=== PATIENT | male | born 1965 | race Caucasian/White ===

== ENCOUNTER 2022-08-28 14:41 | Inpatient (IN) | payer BC, SELFPAY ==
[2022-08-28 14:50] VITALS: BP 110/74; PULSE 82; RESP 15; TEMP 37.2; O2SAT 96
--- NOTE | 2022-08-28 15:15 | DI.CT_ITS ---
Exam(s) CT ABDOMEN PELVIS W EXAM: CT ABDOMEN PELVIS W CLINICAL HISTORY: epigatric pain. TECHNIQUE: Imaging Protocol: Axial computed tomography images with coronal and sagittal reformatted images were created and reviewed CONTRAST MATERIAL: Intravenous: Omnipaque 350 Contrast volume:100 ml Oral: yes / no COMPARISON: No exams were available for comparison FINDINGS: ABDOMEN: Lung Bases: Small nodules consistent with granulomas. No follow-up recommended. Liver: Mild fatty infiltration. No measurable mass. Gallbladder and biliary tract: Gallbladder is somewhat distended with hyperdense material. This coul d be secondary to previously administered contrast or high-density sludge.. There is an air bubble w ithin the lumen. There is mild stranding around the gallbladder neck. There is mild dilatation of t he common bile duct. There is mild intrahepatic biliary dilatation. No common duct stone is visible . Pancreas: Normal density, no abnormal calcifications or inflammatory process. Spleen: Normal. Kidneys: Normal size, contour and axis. No radiodense stones or obstructive uropathy. No suspicious m asses seen. Adrenal glands: No masses seen. Abdominal Aorta: Abdominal portion non-dilated. Soft tissues: Unremarkable. PELVIS: Bladder: Distended. No gross wall thickening. No calculi.No focal mass. Bowel: Diverticulosis. No evidence of diverticulitis. No obstruction. No bowel wall thickening. A ppendix normal. Peritoneal cavity: No ascites, collection or mesenteric inflammatory response. Bones: Unremarkable for age. Reproductive organs: Enlarged prostate. Lymph nodes: Unremarkable. Impression: High-density material in the gallbladder could represent sludge versus previously administered contra st. Some surrounding inflammation and as well as air bubble is suspicious for acute cholecystitis. Ultrasound follow-up recommended. Mild biliary dilatation. RADIATION DOSE DELIVERED: 1,161.38mGy.cm Total DLP DATA REPOSITORY: All CT scans at this facility are submitted to the National Radiology Data Registry (NRDR) Dose Index Registry (DIR) with the [employer] (A[employer]). RADIATION OPTIMIZATION: All CT scans at this facility use at least one of these dose optimization te chniques: automated exposure control; mA and/or kV adjustment per patient size (includes targeted exa ms where dose is matched to clinical indication); or iterative reconstruction.
--- NOTE | 2022-08-28 15:16 | ED.GENADUL_ITS ---
Discharge Plan Discharge Details Chief Complaint: Abd Prob ED Provider: Francesco Hussein Home Meds and New Rx's Prescriptions: No Action sertraline 100 mg Tablet 100 mg PO DAILY levothyroxine 150 mcg Tablet 150 mcg PO DAILY rosuvastatin 10 mg Tablet 10 mg PO DAILY HPI General Date/Time Provider Initiated Documentation: 08/28/22 15:16 . HPI Narrative: 57-year-old gentleman presented to the emergency room for evaluation of abdominal pain. He was at [facility] in [place] last week where he got diagnosed with gallstones and possible obstruction requiring ERCP. He was referred to [facility] in [place] where he had the ERCP done yesterday. He was told to expect some discomfort for the next 2 days. He developed some epigastric pain this morning. He reached out to the family service worker who recommended that he stop in the emergency department for some imaging. They are in transit towards [place] for their vacation there. Here at [facility]. He states that he woke up this morning feeling comfortable. Had an adequate breakfast and then took the road. While on the road is when he developed discomfort/pain. Associate with some mild nausea but no vomiting. No fevers no chills. He did take 15 mg of morphine around noon. Currently in the emergency department he is almost pain-free and they are comfortable. Related Data Home Medications Medication Instructions Recorded Confirmed levothyroxine 150 mcg tablet 150 mcg PO DAILY 08/28/22 08/28/22 rosuvastatin 10 mg tablet 10 mg PO DAILY 08/28/22 08/28/22 sertraline 100 mg tablet 100 mg PO DAILY 08/28/22 08/28/22 Allergies Allergy/AdvReac Type Severity Reaction Status Date / Time No Known Allergies Allergy Unverified 08/28/22 14:54 General Stated Complaint: Abd Prob MIKE: 3 Review of Systems Narrative: 10 point review of system is negative unless otherwise specified in the HPI PFSH All Active Problems (Updated 08/28/22 @ 19:21 by Garth Paul MD) Post-ERCP acute pancreatitis (Acute) Social History Smoking/Tobacco Use Status: Never Smoking risk assessment performed?: Yes Alcohol Intake: never Drug use: Never Substance use type: does not use Exam Narrative Exam Narrative: General: A,A Ox3, Calm, no apparent distress, well developed, pleasant and cooperative Head Size/Shape: normocephalic, atraumatic Eyes Pupils: PERRLA Extraocular Mobility: intact and symmetrical Conjunctiva: non-injected, anicteric, no discharge Ears, Nose, Throat Nares: patent bilaterally Oral Cavity: moist Neck: no masses, no crepitus Respiratory Effort: no dyspnea Normal cap refill Abdomen Inspection and Palpation: soft, non-tender, non-distended, no hepatosplenomegaly Musculoskeletal System Joints, Bones, and Muscles: no deformities Extremities: warm and well-perfused, no cyanosis, capillary refill <2 seconds Skin Skin Inspection: no rash, no lesions, no bruising Neurological Motor: normal tone, normal strength, moving all extremities equally Psychiatric: good insight, good judgement, normal mood and affect Course The patient CT scan revealed mild gallbladder distention with some perivesicular fatty inflammation. Findings were concerning for acute cholecystitis. Given the patient's elevated white count and elevated LFTs which are new from last week, this is concerning for acute cholecystitis. The case was discussed with Dr. Paul. Who is also aware that the patient also has mild pancreatitis. We discussed the plan to admit the patient for at least 24 to 48 hours for IV antibiotics to make sure that symptoms are defervescent before even considering surgical intervention. This was discussed with the patient and his . . The patient talked with them. 7 PM, the patient was seen by Dr. Paul in the emergency department. Discussed treatment modalities with the patient. Patient will be admitted to the hospital. Vital Signs Vital signs: Vital Signs Temperature 37.2 C 08/28/22 14:50 Pulse 82 08/28/22 14:50 Respiratory Rate 15 08/28/22 14:50 Blood Pressure 110/74 08/28/22 14:50 Pulse Oximetry 96 08/28/22 14:50 Temperature 37.2 C 08/28/22 14:50 Temperature Source Temporal Artery Scan 08/28/22 14:50 Pulse 82 08/28/22 14:50 Respiratory Rate 15 08/28/22 14:50 Respiratory Effort Normal 08/28/22 14:53 Blood Pressure 110/74 08/28/22 14:50 Blood Pressure Position Sitting 08/28/22 14:50 Pulse Oximetry 96 08/28/22 14:50 Oxygen Delivery Method Room Air 08/28/22 14:50 Oxygen Flow Rate 0 08/28/22 14:50 Pain Level 3 08/28/22 14:50
[2022-08-28 15:33] LABS: Abs Immature Grans 0.05 10^3/uL (0.0-0.06); Absolute Basophil Count 0.06 10^3/uL (0.0-0.2); Absolute Eosinophil Count 0.07 10^3/uL (0.0-0.7); Absolute Lymphocyte Count 1.07 10^3/uL (1.2-3.4); Absolute Monocyte Count 0.79 10^3/uL (0.1-0.8); Absolute Neutrophil Count 10.08 10^3/uL (1.2-6.7); Basophils % 0.5; Eosinophils % 0.6; HCT 46.1 % (40.0-50.0); HGB 15.3 g/dL (13.5-17.5); Immature Grans % 0.4; Lymphocytes % 8.8; MCH 27.4 pg (27.0-33.0); MCHC 33.2 % (32.0-36.0); MCV 83 fL (80-95); MPV 9.4 fL (8.0-11.0); Monocytes % 6.5; Neutrophils % 83.2; Platelet Count 268 10^3/uL (130-400); RBC 5.59 10^6/uL (4.36-5.78); RDW 14.1 % (11.8-14.1); WBC 12.12 10^3/uL (4.4-10.8)
[2022-08-28 15:49] LABS: ALT 175 U/L (16-63); AST 116 U/L (15-37); Alkaline Phosphatase 166 U/L (46-116); Anion Gap 6.2 mmol/L (3-11); BUN 12 mg/dL (7-18); Bilirubin, Total 1.3 mg/dL (0.2-1.0); CO2 28.8 mmol/L (21.0-32.0); CREATININE 1.2 mg/dL (0.70-1.30); Calcium 9.1 mg/dL (8.5-10.1); Chloride 104 mmol/L (98-107); Estimated GFR 71.42 (mL/min/1.73m2); Glucose 146 mg/dL (74-106); Potassium 4.2 mmol/L (3.5-5.1); Sodium 139 mmol/L (136-145); Total Protein 7.8 g/dL (6.4-8.2)
[2022-08-28 15:53] LABS: Lipase > 375 U/L (16-77)
[2022-08-28] MEDS: Omnipaque 350 MG/ML 100 ML BTL IJ (16:21)
[2022-08-28] MEDS: Normal Saline - Diluent 50 ML VIAL IJ (16:21)
[2022-08-28] MEDS: Normal Saline Flush 10 ML SYR IVP ×2 (16:27→21:24)
--- NOTE | 2022-08-28 16:55 | DI.VRAD_ITS ---
PROCEDURE INFORMATION: Exam: CT Abdomen And Pelvis With Contrast Exam date and time: 08/28/2022 4:17 PM Age: 57 years old Clinical indication: Pain; Other: Epigastric TECHNIQUE: Imaging protocol: Computed tomography of the abdomen and pelvis with contrast. Contrast material: OMNIPAQUE 350; Contrast volume: 100 ml; Contrast route: INTRAVENOUS (IV); COMPARISON: No relevant prior studies available. FINDINGS: Lungs: No acute lung base infiltrates. Two small nodules adjacent to each other in the posterior left lower lobe measuring 6 mm and 3 mm. Series 4, image 3. These are noncalcified. There is also a small nodule in the lingular segment of the left upper lobe measuring 5 x 3 mm. Noncalcified. These nodules are rounded. A 4th nodule in the left costophrenic sulcus is 4 x 3 mm on series 4, image 16. These are likely small granulomas. Based on MIPS criteria, no further imaging follow-up is recommended at this time. Heart: Normal heart size. No pericardial effusion. No coronary artery atherosclerotic calcium. Liver: Liver with moderate fatty infiltration. Gallbladder and bile ducts: Distended gallbladder. Hyperdense gallbladder contents may represent sludge or tiny stones. There is a minor focus of air in the gallbladder fundus. Some inflammation is suggested around the gallbladder neck within the Susan vesicular fat. These findings are concerning for cholecystitis. Recommend ultrasound follow-up. Common bile duct upper limits of normal at 6 mm. Minor intrahepatic biliary dilatation. Pancreas: The pancreas is normal in contour and attenuation. Spleen: The spleen is normal in size, contour and attenuation. Adrenal glands: The adrenal glands are normal in size and contour bilaterally. Kidneys and ureters: No acute renal changes. No calculi. No inflammation. Subcentimeter bilateral renal cysts. No further imaging follow-up is recommended based on MIPS criteria. Stomach and bowel: Gastric morphology is unremarkable. No edema. No gastric outlet obstruction. Small sliding hiatal hernia. No acute change. Small bowel loops are normal in course and caliber. There is no mucosal edema or bowel wall thickening. No obstructive features. Large bowel is unremarkable. No acute features. Diverticulosis without acute diverticulitis. Appendix: A non inflamed appendix is identified. Series 4, images 51-54. Intraperitoneal space: Unremarkable. No free air. No significant fluid collection. Vasculature: Unremarkable. No abdominal aortic aneurysm. Lymph nodes: Unremarkable. No enlarged lymph nodes. Urinary bladder: Urinary bladder is unremarkable in appearance. No wall thickening. No intravesicular calculi. No intravesicular gas.. Reproductive: Mild prostate enlargement. Recommend clinical correlation. Bones/joints: No acute skeletal changes. Soft tissues: Soft tissues of the bowel wall are unremarkable. IMPRESSION: 1. Mild gallbladder distention, punctate intravesicular gas, and minor perivesicular fatty inflammation. Concern for acute cholecystitis. Recommend ultrasound correlation. Common bile duct is upper limits of normal at 6 mm. Minor intrahepatic biliary dilatation is noted. Please correlate with serology. 2. Fatty liver change. 3. Nonspecific prostate enlargement. 4. No acute bowel pathology. 5. No free fluid or free air. Dictated and Authenticated by: Abdullahi Rosen MD. Ordering:ROSELINE Maya MD
[2022-08-28] MEDS: AMPICILLIN/SULBACTAM 3 GM in Normal Saline 100 ML IVPB (17:59)
[2022-08-28 18:26] VITALS: BP 107/72; PULSE 67; RESP 18; O2SAT 95
--- NOTE | 2022-08-28 19:16 | HPE_ITS ---
Date of service: 08/28/22 Time of Service: 19:17 Assessment and Plan Assessment and plan (1) Post-ERCP acute pancreatitis: Status: Acute Assessment and plan: Although the CAT scan does show a little bit of inflammation around the cystic neck, the remainder of the gallbladder body and dome appear normal, with no signs of inflammation in the surrounding fat pad. With the elevated lipase, and a history of an ERCP yesterday, this seems most consistent with post ERCP pancreatitis. We talked about the natural history of pancreatitis as well as cholecystitis. At this point, I think supportive therapy, with some intravenous fluids and resuscitation is the safest course of action. We will start some antibiotics as well in the case that the gallbladder itself is inflamed. I will repeat a CBC and a lipase tomorrow. If he looks and feels better, and his biochemistry is improved, then we can work towards discharge, with an elective cholecystectomy closer to home. If he prefers to undergo janna cystectomy here, that is also an option as well. History of Present Illness History of Present Illness Chief Complaint: Abdominal pain Narrative: Heriberto is 57 years old, and he presents to the emergency department with a chief complaint of stabbing mid abdominal pain. He is got a history of choledocholithiasis, which was diagnosed by CAT scan approximately half ago. Lipase and LFTs were normal at that time. He was referred to grinding supervisor for elective ERCP, which she underwent yesterday. He woke from the procedure feeling okay, but did note some midepigastric abdominal discomfort. He was able to tolerate some breakfast, but the pain continued, and became a bit more intense. Incidentally, he lives in [facility], and he is driving through [facility] on his way to [place]. Review of Systems Constitutional Constitutional: Denies body ache(s), Denies fatigue, Denies fever(s), Denies malaise, Denies poor appetite and Denies weakness Eyes Eyes: Reports system reviewed and no additional complaints, except as documented ENT Ears, Nose, Mouth, and Throat: Reports nasal congestion Cardiovascular Cardiovascular: Denies chest pain and Denies dyspnea Respiratory Respiratory: Denies chest congestion, Denies cough and Denies dyspnea Gastrointestinal Gastrointestinal: Reports abdominal pain, Denies change in bowel habits, Denies nausea and Denies vomiting Musculoskeletal Musculoskeletal: Denies back pain and Denies myalgias Neurologic Neurologic: Reports system reviewed and no additional complaints, except as documented and Denies weakness Psychiatric Psychiatric: Reports system reviewed and no additional complaints, except as documented Endocrine Endocrine: Denies fatigue Hematologic/Lymphatic Hematologic/Lymphatic: Denies easy bleeding and Denies easy bruising PFSH All Active Problems (Updated 08/28/22 @ 19:21 by Garth Paul MD) Post-ERCP acute pancreatitis (Acute) Social History Smoking/Tobacco Use Status: Never Smoking risk assessment performed?: Yes Alcohol Intake: never Drug use: Never Substance use type: does not use Meds Allergies and Home Medications Allergies Allergy/AdvReac Type Severity Reaction Status Date / Time No Known Allergies Allergy Unverified 08/28/22 14:54 Home Medications Medication Instructions Recorded Confirmed Type levothyroxine 150 mcg tablet 150 mcg PO DAILY 08/28/22 08/28/22 History rosuvastatin 10 mg tablet 10 mg PO DAILY 08/28/22 08/28/22 History sertraline 100 mg tablet 100 mg PO DAILY 08/28/22 08/28/22 History Exam Const General: cooperative, healthy appearing, comfortable and no acute distress Resp Effort & Inspection: normal respiratory effort, able to speak in complete sentences and no cough Auscultation: clear to auscultation bilaterally Cardio Rate: regular rate Rhythm: regular rhythm Heart Sounds: S1 normal and S2 normal GI Inspection: normal to inspection and non-distended Palpation: soft, no guarding and nontender Results Imaging Abdomen CT scan report/results: report reviewed and image reviewed CT scan - pelvis: report reviewed and image reviewed Labs 08/28/22 15:18 08/28/22 15:18 Labs: Laboratory Results - last 24 hr 08/28/22 08/28/22 15:18 15:18 WBC 12.12 H RBC 5.59 Hgb 15.3 Hct 46.1 MCV 83 MCH 27.4 MCHC 33.2 RDW 14.1 Plt Count 268 MPV 9.4 Immature Gran % 0.4 Neutrophils % 83.2 Lymphocytes % 8.8 Monocytes % 6.5 Eosinophils % 0.6 Basophils % 0.5 Nucleated RBC % 0.0 Absolute Neutrophils 10.08 H Absolute Lymphocytes 1.07 L Absolute Monocytes 0.79 Absolute Eosinophils 0.07 Absolute Basophils 0.06 Sodium 139 Potassium 4.2 Chloride 104 Carbon Dioxide 28.8 Anion Gap 6.2 BUN 12 Creatinine 1.2 Est GFR (CKD-EPI 2020) 71.42 Glucose 146 H Calcium 9.1 Total Bilirubin 1.3 H AST 116 H ALT 175 H Alkaline Phosphatase 166 H Total Protein 7.8 Albumin 4.0 Lipase > 375 H Last Vital Signs Temp 99.0 F 08/28/22 14:50 Pulse 67 08/28/22 18:26 Resp 18 08/28/22 18:26 BP 107/72 08/28/22 18:26 Pulse Ox 95 08/28/22 18:26 Time Spent Time spent with Patient: >75 minutes Time was spent: preparing to see the patient(eg.review tests), ordering medicati ons,tests, procedures, referring, communicating with other health resident care assistant, indepentently interpreting results and counseling the patient
[2022-08-28 20:09] VITALS: BP 116/69; PULSE 74; TEMP 36.4; O2SAT 96
[2022-08-28 20:45] VITALS: BP 131/80; PULSE 71; RESP 18; TEMP 37.5; O2SAT 94
[2022-08-28 20:46] VITALS: BP 131/80; PULSE 71; RESP 18; TEMP 37.5; O2SAT 94
[2022-08-28] MEDS: Lactated Ringers 1,000 ML 80 ML IV (21:24)
[2022-08-29] MEDS: AMPICILLIN/SULBACTAM 3 GM in Normal Saline 100 ML IVPB ×2 (01:17→06:22)
[2022-08-29 06:05] VITALS: BP 105/67; PULSE 65; RESP 18; TEMP 36.9; O2SAT 93
[2022-08-29 07:02] LABS: Abs Immature Grans 0.05 10^3/uL (0.0-0.06); Absolute Basophil Count 0.07 10^3/uL (0.0-0.2); Absolute Eosinophil Count 0.25 10^3/uL (0.0-0.7); Absolute Lymphocyte Count 1.89 10^3/uL (1.2-3.4); Absolute Monocyte Count 1.16 10^3/uL (0.1-0.8); Absolute Neutrophil Count 8.06 10^3/uL (1.2-6.7); Basophils % 0.6; Eosinophils % 2.2; HCT 44.3 % (40.0-50.0); HGB 14.7 g/dL (13.5-17.5); Immature Grans % 0.4; Lymphocytes % 16.5; MCH 27.2 pg (27.0-33.0); MCHC 33.2 % (32.0-36.0); MCV 82 fL (80-95); MPV 9.9 fL (8.0-11.0); Monocytes % 10.1; Neutrophils % 70.2; Platelet Count 255 10^3/uL (130-400); RBC 5.41 10^6/uL (4.36-5.78); RDW 14.1 % (11.8-14.1); RDW-SD 41.7 fL; WBC 11.48 10^3/uL (4.4-10.8)
[2022-08-29 07:31] LABS: ALT 130 U/L (16-63); AST 55 U/L (15-37); Albumin 3.6 g/dL (3.4-5.0); Alkaline Phosphatase 145 U/L (46-116); Anion Gap 8.1 mmol/L (3-11); BUN 10 mg/dL (7-18); Bilirubin, Total 0.9 mg/dL (0.2-1.0); CO2 26.9 mmol/L (21.0-32.0); Calcium 9.1 mg/dL (8.5-10.1); Chloride 106 mmol/L (98-107); Estimated GFR 88.88 (mL/min/1.73m2); Glucose 99 mg/dL (74-106); Lipase 95 U/L (16-77); Sodium 141 mmol/L (136-145)
--- NOTE | 2022-08-29 08:02 | DSE_ITS ---
Date of service: 08/29/22 Time of Service: 08:02 DS: Diagnosis Discharge Diagnosis (1) Post-ERCP acute pancreatitis: Status: Acute Asessment and Plan: Follow up with home physician and planned cholecystectomy Discharge Plan Disposition Patient Disposition: Home Condition: Improving Discharge Details Reason For Visit: Gallstone Pancreatitis Admit Date/Time: 08/28/22 19:13 Admit Provider: Garth Paul Attending Provider: Garth Paul [facility] Course: Heriberto 57 years old, he had an episode of choledocholithiasis requiring ERCP. About 24 hours after the procedure, he started to develop gnawing and stabbing mid abdominal pain. He came to the emergency department while traveling across [place]. He underwent a CAT scan of the abdomen and pelvis that demonstrated some inflammation around the infundibulum of the gallbladder, near the cystic neck. This raises the possibility of acute cholecystitis. However, serum lipase was also significantly elevated at greater than 375. This seem more consistent with gallstone pancreatitis. He was admitted to the hospital, his pain was treated, he was started on some intravenous fluids and a simple diet. His pain significantly improved over the next several hours. By the following morning, his lipase had normalized, and his pain was resolved. The plan to discharge home with a short course of antibiotics in the case that this might be cholecystitis, but overall seems most consistent with ERCP pancreatitis. We did talk about the importance of a follow-up cholecystectomy to reduce the chances of further complications of gallstones. Home Meds and New Rx's Prescriptions: New amoxicillin-pot clavulanate [Augmentin] 500-125 mg tablet 1 tab PO BID Qty: 12 0RF Rx Instructions: Take one tablet by mouth in the morning and one tablet by mouth in the evening. Complete 6 days total hydromorphone [Dilaudid] 2 mg tablet 2 mg PO Q6H MDD 4 tabs PRN (Reason: pain) Qty: 8 0RF Continued sertraline 100 mg Tablet 100 mg PO DAILY levothyroxine 150 mcg Tablet 150 mcg PO DAILY rosuvastatin 10 mg Tablet 10 mg PO DAILY Discharge Instructions Instructions: Pancreatitis (DC), ERCP (Endoscopic Retrograde Cholangiopancreatography) (DC) Additional Instructions: Consume a simple diet, low in fats for the next 48 hours. Consume things like fruits and vegetables, broths and simple carbohydrate breads. Avoid dairy, oils, and greasy foods. Over the counter ant-acids might also provide some simple relief for the next few days. Do not use the morphine that you were previously prescribed. Use tylenol and ibuprofen for pain or the Dilaudid prescribed today. I recommend that you plan to have your gallbladder removed as soon as possible. Stand Alone Forms: Nursing Discharge Form Activity:: Activity as Tolerated Equipment/Supplies:: No Equipment Needed Diet:: Low fat Discharge Orders Discharge Orders: Discharge Order (Routine); Ordered 08/29/22 Ordered By: Garth Paul DS: Summary Time Spent with Patient providing and/or coordinating discharge services: Greater than 30 minutes Status at Discharge Functional status at discharge: independent ambulation Overall status at discharge: patient is progressing back to baseline Mental Status: mental status grossly normal Speech and Movement: speech and movement normal Mood: congruent mood Affect: normal affect Exam GI Inspection: normal to inspection Palpation: soft and nontender Psych Mental Status: mental status grossly normal Speech and Movement: speech and movement normal Mood: congruent mood Affect: normal affect DS: Data Vitals/I&O Vitals and I&O: Vital Signs Temperature 98.4 F 08/29/22 06:05 Temperature Source Tympanic 08/29/22 06:05 Pulse 65 08/29/22 06:05 Pulse Rhythm Regular 08/28/22 20:46 Respiratory Rate 18 08/29/22 06:05 Respiratory Effort Normal, Non-Labored 08/28/22 20:46 Respiratory Depth Normal 08/28/22 20:46 Respiratory Pattern Normal 08/28/22 20:46 Blood Pressure 105/67 08/29/22 06:05 Blood Pressure Position Sitting 08/28/22 14:50 Pulse Oximetry 93 08/29/22 06:05 Oxygen Delivery Method Room Air 08/29/22 06:05 Oxygen Flow Rate 0 08/29/22 06:05 Pain Level 3 08/28/22 20:46 Intake & Output 08/28/22 08/28/22 08/29/22 11:59 23:59 11:59 Intake Total 100 / 100 750 / 750 Output Total 1000 / 1000 Balance 100 / 100 -250 / -250 Weight 204 lb 6.4 oz Intake: IV 100 / 100 100 / 100 Oral 650 / 650 Output: Urine 1000 / 1000 Other: Urine Color Yellow Urine Appearance Clear Cloudy Urine Odor Normal Voiding Methods Toilet Data Completed and Pending Labs on day of discharge: Labs from last 24 hours 08/29/22 08/29/22 08/28/22 06:00 06:00 15:18 WBC 11.48 H 12.12 H RBC 5.41 5.59 Hgb 14.7 15.3 Hct 44.3 46.1 MCV 82 83 MCH 27.2 27.4 MCHC 33.2 33.2 RDW 14.1 14.1 Plt Count 255 268 MPV 9.9 9.4 Immature Gran % 0.4 0.4 Neutrophils % 70.2 83.2 Lymphocytes % 16.5 8.8 Monocytes % 10.1 6.5 Eosinophils % 2.2 0.6 Basophils % 0.6 0.5 Nucleated RBC % 0.0 0.0 Absolute Neutrophils 8.06 H 10.08 H Absolute Lymphocytes 1.89 1.07 L Absolute Monocytes 1.16 H 0.79 Absolute Eosinophils 0.25 0.07 Absolute Basophils 0.07 0.06 Sodium 141 Potassium 4.0 Chloride 106 Carbon Dioxide 26.9 Anion Gap 8.1 BUN 10 Creatinine 1.0 Est GFR (CKD-EPI 2020) 88.88 Glucose 99 Calcium 9.1 Total Bilirubin 0.9 AST 55 H ALT 130 H Alkaline Phosphatase 145 H Total Protein 7.0 Albumin 3.6 Lipase 95 H 08/28/22 15:18 WBC RBC Hgb Hct MCV MCH MCHC RDW Plt Count MPV Immature Gran % Neutrophils % Lymphocytes % Monocytes % Eosinophils % Basophils % Nucleated RBC % Absolute Neutrophils Absolute Lymphocytes Absolute Monocytes Absolute Eosinophils Absolute Basophils Sodium 139 Potassium 4.2 Chloride 104 Carbon Dioxide 28.8 Anion Gap 6.2 BUN 12 Creatinine 1.2 Est GFR (CKD-EPI 2020) 71.42 Glucose 146 H Calcium 9.1 Total Bilirubin 1.3 H AST 116 H ALT 175 H Alkaline Phosphatase 166 H Total Protein 7.8 Albumin 4.0 Lipase > 375 H PFSH All Active Problems Post-ERCP acute pancreatitis (Acute) Social History Smoking/Tobacco Use Status: Never Smoking risk assessment performed?: Yes Alcohol Intake: never Drug use: Never Substance use type: does not use Time Spent with Patient Time Spent with Patient: <45 minutes Time was spent: preparing to see the patient(eg.review tests), indepentently interpreting results and counseling the patient
[2022-08-29] MEDS: Sertraline 100 MG TAB PO (08:44)
--- NOTE | 2022-08-29 08:48 | W.PM.PROGNOT ---
Date of Service Date of service: 08/29/22 Time of Service: 08:48 Assessment and Plan Assessment and plan (1) Post-ERCP acute pancreatitis: Status: Acute Assessment and plan: This all seems most consistent with post ERCP pancreatitis. I will continue the antibiotics for the next 6 days in the case that there might be an element of cholecystitis as well. He will follow-up as an outpatient with physicians [place] for [place]. Subjective Subjective Interval history since last seen: Pain is improved significantly since yesterday. He is tolerating clear liquids. Exam GI Other: His abdomen is soft, nontender, nondistended. Objective Last Vital Signs Temp 98.4 F 08/29/22 06:05 Pulse 65 08/29/22 06:05 Resp 18 08/29/22 06:05 BP 105/67 08/29/22 06:05 Pulse Ox 93 08/29/22 06:05 Laboratory Results - last 24 hr 08/28/22 08/28/22 08/29/22 15:18 15:18 06:00 WBC 12.12 H RBC 5.59 Hgb 15.3 Hct 46.1 MCV 83 MCH 27.4 MCHC 33.2 RDW 14.1 Plt Count 268 MPV 9.4 Immature Gran % 0.4 Neutrophils % 83.2 Lymphocytes % 8.8 Monocytes % 6.5 Eosinophils % 0.6 Basophils % 0.5 Nucleated RBC % 0.0 Absolute Neutrophils 10.08 H Absolute Lymphocytes 1.07 L Absolute Monocytes 0.79 Absolute Eosinophils 0.07 Absolute Basophils 0.06 Sodium 139 141 Potassium 4.2 4.0 Chloride 104 106 Carbon Dioxide 28.8 26.9 Anion Gap 6.2 8.1 BUN 12 10 Creatinine 1.2 1.0 Est GFR (CKD-EPI 2020) 71.42 88.88 Glucose 146 H 99 Calcium 9.1 9.1 Total Bilirubin 1.3 H 0.9 AST 116 H 55 H ALT 175 H 130 H Alkaline Phosphatase 166 H 145 H Total Protein 7.8 7.0 Albumin 4.0 3.6 Lipase > 375 H 95 H 08/29/22 06:00 WBC 11.48 H RBC 5.41 Hgb 14.7 Hct 44.3 MCV 82 MCH 27.2 MCHC 33.2 RDW 14.1 Plt Count 255 MPV 9.9 Immature Gran % 0.4 Neutrophils % 70.2 Lymphocytes % 16.5 Monocytes % 10.1 Eosinophils % 2.2 Basophils % 0.6 Nucleated RBC % 0.0 Absolute Neutrophils 8.06 H Absolute Lymphocytes 1.89 Absolute Monocytes 1.16 H Absolute Eosinophils 0.25 Absolute Basophils 0.07 Sodium Potassium Chloride Carbon Dioxide Anion Gap BUN Creatinine Est GFR (CKD-EPI 2020) Glucose Calcium Total Bilirubin AST ALT Alkaline Phosphatase Total Protein Albumin Lipase Time Spent with Patient Time Spent with Patient: <25 minutes Time was spent: preparing to see the patient(eg.review tests) and counseling the patient
== END 2022-08-29 10:03 | disposition home or self-care (01) | DRG 393 ==
LOC: ER 20:17 → MS 20:19
PROVIDERS: Admitting Provider Surgery; Emergency Provider Emergency Medicine; Visit Provider Surgery
DX: K91.89 Other postprocedural complications and disorders of digestive system (principal); K85.80 Other acute pancreatitis without necrosis or infection; Z79.899 Other long term (current) drug therapy
CPT/HCPCS: 36415; 80053; 83690; 74177; 85025; J0295; J3490